=== PATIENT | male | born 1950 | race Native Hawaiian/Other Pacific Islander ===

== ENCOUNTER → 2017-01-24 05:46 | Outpatient (CLI) | payer OTHER ==
[~2017-01-24 05:46] MED LIST: LISI5TAB10 PO; METOPROLOL25 M1 OR; NEXIUM40 M1 PO; SIMV40TA57 PO
== END | disposition home or self-care (01) ==
LOC: AMB 05:46
DX: I46.9 Cardiac arrest, cause unspecified (principal)